=== PATIENT | female | born 1995 | race Caucasian/White ===

== ENCOUNTER 2018-01-02 18:42 | Emergency (ER) | payer OTHER ==
[~2018-01-02] VITALS: Ht 160 cm; Wt 56.7 kg
[~2018-01-02 18:42] MED LIST: CITRANATAL HARM1 SG1 PO; HYDROCODONE/ACE1 TA1 PO; IBUPROFEN800 M1 PO; LIORESAL 10MG T10 MG PO; MOTRIN 600 MG600 MG PO; Physical therapy; TRAMADOL50 MG PO; TYLENOL XSTR500 MG PO; VICODIN5-300 PO; ZOFRAN 4 MG TABL4 MG PO
[2018-01-02 19:35] LABS: ABSOLUTE BASOPHIL COUNT 0 /CUMM (0.0-0.2); ABSOLUTE EOSINOPHIL COUNT 0 /CUMM (0.0-0.7); ABSOLUTE LYMPH COUNT 3.2 /CUMM (1.2-3.4); ABSOLUTE MONOCYTE COUNT 0.6 /CUMM (0.10-0.60); BASOPHIL % 0.4 % (0.0-2.0); EOSINOPHIL % 0.6 % (0-5); GRANULOCYTE % 50.7 % (42.2-75.2); HEMATOCRIT 37.1 % (37-47); MEAN CORPUSCULAR HGB CONC 33.9 G/DL (33.0-37.0); MEAN CORPUSCULAR VOLUME 94.3 FL (81.0-99.0); MEAN PLATELET VOLUME 8.6 FL (7.4-10.4); PLATELET COUNT 255 /CUMM (130-400); RBC DISTRIBUTION WIDTH 12.5 % (11.5-14.5); RED BLOOD CELL CT 3.94 /CUMM (4.20-5.40)
--- NOTE | 2018-01-02 21:17 | ED GI/GU/ABDOMINAL COMPLAINT ---
History of Present Illness General Chief Complaint: Abdominal Pain/Flank Pain Stated Complaint: BIBA LRQ ABD PAIN X 5 DAYS Source: patient Exam Limitations: no limitations Vital Signs & Intake/Output Vital Signs & Intake/Output Vital Signs Date Time Temp Pulse Resp B/P B/P Pulse O2 O2 Flow FiO2 Mean Ox Delivery Rate 01/02 2148 98.4 91 16 129/79 99 Room Air 01/02 1857 98.1 126 18 125/78 99 Room Air Allergies Coded Allergies: Penicillins (CHILDHOOD REACTION 02/02/16) Uncoded Allergies: RED ANTS (UNKNOWN 02/18/12) ORANGES (HIVES 12/30/17) Reconcile Medications Baclofen (Lioresal) 10 MG TAB 1 TAB PO TIDPRN PRN muscle strain HYDROCODONE/ACETAMINOPHEN (Hydrocodon-Acetaminophen 5-325) 1 TAB TAB 1-2 TAB PO Q6P PRN severe pain Ibuprofen 800 MG TABLET 1 TAB PO TID PRN pain Ibuprofen (Motrin 600 MG Tab) 600 MG TAB 1 TAB PO Q6P PRN PAIN Oxycodone HCl/Acetaminophen (Percocet 5-325 MG Tablet) 5 MG-325 MG TABLET 1-2 TAB PO BID pain [Physical therapy] Evaluate and treat left pyriformis syndrome Triage Note: LLQ PAIN X5 DAYS AND NOW TRAVELING TO UMBILICUS AND RLQ PAIN WITH A "BALL IN STOMACH". REPORTS PAIN WORSE WITH DRIVING AND HITTING BUMPS. DENIES CHANGE IN APPETITE OR N/V/D. DENIES BLOOD OR TARRY STOOLS. PAIN 7/10. IMPROVED WITH HEAT. Triage Nurses Notes Reviewed? yes ? n Is pt currently ? No Onset: Abrupt Duration: day(s): (5), constant Timing: recent history Quality/Severity: moderate, sharpness, severe Location: right lower quadrant Radiation: no radiation Use of Protection: No HPI: 22-year-old female that was seen here this past Tuesday and had normal blood work and a normal CT scan and a normal transvaginal ultra scan with a negative pelvic exam comes into the emergency room for evaluation of increased right lower abdominal pain. Patient reports that the pain began this past 5 days ago. She noticed that her stomach felt to have more gas than usual. The pain began on Tuesday. She denies any urinary symptoms such as burning or increased frequency. She denies any vaginal discharge. The pain was initially located in the left side and now she feels more pain on the right side. There is no evidence of appendicitis on the CT scanning of the day and there is no evidence of ovarian torsion on the ultrasound. She reports that the pain has gotten worse and she came in for further evaluation. (Syed Cheng) Past History Travel History Traveled to [place] past 21 day No Medical History Any Pertinent Medical History? see below for history Neurological: NONE EENT: NONE Cardiovascular: NONE Respiratory: NONE Gastrointestinal: NONE Hepatic: NONE Renal: NONE Musculoskeletal: NONE Psychiatric: anxiety, depression, PTSD; cannabis use Endocrine: NONE Blood Disorders: NONE Cancer(s): NONE FINANCE CLERK/Reproductive: ovarian cyst Surgical History Surgical History: NONE Psychosocial History What is your primary language Sinhala Tobacco Use: Current Daily Use Daily Tobacco Use Amount/Type: => 5 Cigarettes daily ETOH Use: occasional use Illicit Drug Use: denies illicit drug use Family History Hx Contributory? No (Syed Cheng) Review of Systems Review of Systems Constitutional: Reports: no symptoms. EENTM: Reports: no symptoms. Respiratory: Reports: no symptoms. Cardiovascular: Reports: no symptoms. GI: Reports: see HPI. Genitourinary: Reports: see HPI. Musculoskeletal: Reports: no symptoms. Skin: Reports: no symptoms. Neurological/Psychological: Reports: no symptoms. Hematologic/Endocrine: Reports: no symptoms. Immunologic/Allergic: Reports: no symptoms. All Other Systems: Reviewed and Negative (Syed Cheng) Physical Exam Physical Exam General Appearance: well developed/nourished, no apparent distress, alert, awake Head: atraumatic, normal appearance Eyes: Bilateral: normal appearance, EOMI. Ears, Nose, Throat, Mouth: hearing grossly normal, moist mucous membrane Neck: normal inspection Respiratory: normal breath sounds, no respiratory distress Cardiovascular: regular rate/rhythm Gastrointestinal: soft, tenderness (rlq), no guarding, no rebound tenderness Back: normal inspection Extremities: normal range of motion Neurologic/Psych: awake, alert, oriented x 3, normal gait, normal mood/affect Skin: intact, normal color Core Measures ACS in differential dx? No Sepsis Present: No Sepsis Focused Exam Completed? No (Syed Cheng) Progress Differential Diagnosis: appendicitis, bowel obstruction, diverticulitis, ectopic , ovarian cyst, ovarian torsion, PID/cervicitis, SBO, UTI/pyelo Plan of Care: Orders Procedure Date/time Status LIPASE 01/02 1857 Complete HUMAN BETA HCG SCREEN 01/02 1857 Complete COMPREHENSIVE METABOLIC PANEL 01/02 1857 Complete CBC WITHOUT DIFFERENTIAL 01/02 1857 Complete Laboratory Tests 01/02/18 1902: Anion Gap 9, Estimated GFR > 60, BUN/Creatinine Ratio 21.7, Glucose 85, Calcium 9.8, Total Bilirubin 0.4, AST 14, ALT 24, Alkaline Phosphatase 49, Total Protein 6.9, Albumin 4.3, Globulin 2.6, Albumin/Globulin Ratio 1.7, Lipase 70, Total Beta HCG NEGATIVE, CBC w Diff NO MAN DIFF REQ, RBC 3.94 L, MCV 94.3, MCH 32.0 H, MCHC 33.9, RDW 12.5, MPV 8.6, Gran % 50.7, Lymphocytes % 40.6, Monocytes % 7.7, Eosinophils % 0.6, Basophils % 0.4, Absolute Granulocytes 4.0, Absolute Lymphocytes 3.2, Absolute Monocytes 0.6, Absolute Eosinophils 0, Absolute Basophils 0 Initial ED EKG: none Comments: 01/02/2018 11:07:41 PM Repeat blood work is within normal limits. Patient had a normal workup 2 days ago. Low suspicion for appendicitis due to the fact that she had a normal CAT scan 2 days ago. There is no evidence of ovarian torsion. Shared decision making. Offered patient a repeat CAT scan with contrast IV. Patient agrees with my plan of care. Patient will be trialed on pain medication and follow-up with gynecology. She had a negative gonorrhea and chlamydia. She understands and agrees with plan of care. She has no acute abdomen on exam. I do not feel that rescanning the patient with exposure to radiation is necessary at this moment due to the fact that she had a normal CAT scan 2 days ago. (Syed Cheng) Departure Departure Disposition: HOME OR SELF CARE Condition: Stable Clinical Impression Primary Impression: Abdominal pain Referrals: Vandana Ureña APRN (PCP/Family) Additional Instructions: Take Percocet for pain. Follow-up with your CEPHALOMETRIC TECHNICIAN doctor. If your symptoms get worse in anyway return to the emergency room for CT scan with contrast of the abdomen and pelvis. Please go over all results of today's visit with your primary care doctor. Contact your primary care doctor to let them know you were here in the emergency room. There may be nonspecific findings which may not be related to your visit today here in the emergency room but may require further evaluation and chronic monitoring by your primary care doctor. If you had a laceration today the chance of foreign body always remains. You should follow-up with your primary care doctor for recheck in 3-5 days for a wound check. If you had an x-ray done there is a chance that a fracture could have been missed on initial read and you should follow-up with your primary care doctor for repeat x-rays if symptoms persist. If your blood pressure was elevated here in the emergency room please have rechecked by [facility] primary care doctor within the next 48. If you were prescribed a narcotic here in the emergency room or any type of controlled substances you're not allowed to drive while taking this medication or operate any type of heavy machinery. Narcotics can make you feel lightheaded dizziness nausea and can cause constipation. You may need to chart picker a stool softener. Thank you for choosing [facility] emergency room. Please return to the emergency room immediately if you have any other concerns worsening of symptoms. Departure Forms: Customer Survey General Discharge Information Prescriptions: Current Visit Scripts Oxycodone HCl/Acetaminophen (Percocet 5-325 MG Tablet) 1-2 TAB PO BID #10 TAB (Syed Cheng) PA/HOME AID Co-Sign Statement Statement: ED Attending supervision documentation- [] I saw and evaluated the patient. I have also reviewed all the pertinent lab results and diagnostic results. I agree with the findings and the plan of care as documented in the PA's/HOME AID's documentation. [X] I have reviewed the ED Record and agree with the PA's/HOME AID's documentation. [] Additions or exceptions (if any) to the PAs/HOME AID's note and plan are summarized below: [] (Amber TRAORE,Wyatt French)
[2018-01-02 21:48] VITALS: BP 129/79
[2018-01-02] MEDS ORDERED: PERCOCET 5-3251 EACH PO (22:07)
== END 2018-01-02 22:40 ==
LOC: ERH 18:42
PROVIDERS: Physician Assistant Medical
DX: R10.31 Right lower quadrant pain (principal)